=== PATIENT | female | born 1980 | race Asian ===

== ENCOUNTER → 2024-04-07 08:32 | Outpatient (BNVA) | payer OTHER, SELFPAY | PROVIDERS: Visit Provider Internal Medicine | DX: M67.834 Other specified disorders of tendon, left wrist (principal) | CPT/HCPCS: 73110; 99203 ==

== ENCOUNTER → 2024-04-17 13:18 | Outpatient (BNVA) | payer OTHER, SELFPAY | PROVIDERS: Visit Provider Physician Assistant Medical | DX: M67.834 Other specified disorders of tendon, left wrist (principal) | CPT/HCPCS: 99213 ==

== ENCOUNTER → 2024-04-27 10:31 | Outpatient (BNVA) | payer OTHER, SELFPAY | PROVIDERS: Visit Provider Physician Assistant Medical | DX: S63.502D Unspecified sprain of left wrist, subsequent encounter (principal); M65.4 Radial styloid tenosynovitis [de Quervain]; X58.XXXD Exposure to other specified factors, subsequent encounter | CPT/HCPCS: 99213 ==

== ENCOUNTER → 2024-05-11 09:32 | Outpatient (BNVA) | payer OTHER, SELFPAY | PROVIDERS: Visit Provider Physician Assistant Medical | DX: M77.8 Other enthesopathies, not elsewhere classified (principal); M25.532 Pain in left wrist | CPT/HCPCS: 99213 ==

== ENCOUNTER 2024-05-28 10:21 | Outpatient (REF) | payer OTHER, SELFPAY ==
--- NOTE | ~2024-05-28 | MR_ITS ---
EXAMINATION: MR WRIST WITHOUT CONTRAST, LEFT CLINICAL INFORMATION: Left wrist pain and weakness. Swelling. COMPARISON: Left wrist radiographs dated 04/07/2024. TECHNIQUE: Multisequence MR imaging of the left wrist was obtained without contrast on a high field strength scanner. FINDINGS: TRIANGULAR FIBROCARTILAGE: 0.1 cm full-thickness defect at the radial insertion (coronal image 16/28). The ulnar insertion is intact. INTRINSIC LIGAMENTS: Intact. TENDONS/MEDIAN NERVE: Intact. ARTICULAR CARTILAGE/BONE: No acute fracture or dislocation. Normal carpal alignment. Intact articular cartilage. Degenerative cyst within the hamate. No concerning lytic or blastic osseous lesion. JOINT FLUID/SOFT TISSUES: Moderate distal radioulnar joint effusion. No soft tissue mass. Synovial recess volar to the radial styloid measuring up to 0.7 cm in greatest dimension. MR/MR wrist LT wo con IMPRESSION: 1. Moderate distal radioulnar joint effusion with a 0.1 cm full-thickness defect at the radial insertion of the triangular fibrocartilage complex. 2. Synovial recess forward to the radial styloid measuring up to 0.7 cm. Electronically signed by: Baljeet Guzman MD 06/08/2024 02:56 PM [facility]
== END 2024-05-28 10:22 | disposition home or self-care (01) ==
LOC: HO.MRI 10:21
PROVIDERS: Visit Provider Internal Medicine
DX: M25.532 Pain in left wrist (principal)
CPT/HCPCS: 73221

== ENCOUNTER → 2024-05-31 13:50 | Outpatient (BNVA) | payer OTHER, SELFPAY | PROVIDERS: Visit Provider Physician Assistant Medical | DX: M67.834 Other specified disorders of tendon, left wrist (principal) | CPT/HCPCS: 99213 ==